=== PATIENT | male | born 1955 | race Caucasian/White ===

== ENCOUNTER 2022-06-02 11:24 | Emergency (ER) | payer MEDICARE, SELFPAY ==
--- NOTE | ~2022-06-02 | XR_ITS ---
Clinical Indication: Cough PA and lateral views of the chest: Comparison: None Findings: The lungs are clear, without evidence of focal consolidation or pleural effusion. Cardiome diastinal silhouette is within normal limits. Bones and soft tissues are unremarkable. Impression: Normal chest. Reviewed, dictated and finalized at location . [facility] Impression: Normal chest.
[2022-06-02 11:34] VITALS: BP 133/72; PULSE 76; RESP 14; TEMP 36.6; O2SAT 96
--- NOTE | 2022-06-02 11:51 | ED.URI ---
HPI - URI/Sore Throat General Chief Complaint: Upper Respiratory Infection Stated Complaint: Congestion/Chest Congestion Time Seen by Provider: 06/02/22 11:51 Source: patient Mode of arrival: ambulatory Limitations: no limitations History of Present Illness HPI Narrative: 66-year-old male presents with complaint of nasal congestion, sinus pressure, cough for 3 weeks. Reports that cough is worse in the morning. Reports postnasal drainage, started allergy medication and not helping. Denies shortness of breath with exertion. Afebrile. All systems reviewed and negative except as noted above. Related Data Home Medications Medication Instructions Recorded Confirmed Lactobac no.2-Bifidobac no.1-S. 1 cap PO DIRECTED 06/02/22 06/02/22 thermo 112.5 billion cell capsule (VSL#3) amlodipine 10 mg tablet 10 mg PO DIRECTED 06/02/22 06/02/22 apixaban 5 mg tablet (Eliquis) 5 mg PO DIRECTED 06/02/22 06/02/22 bupropion HCl 300 mg 24 hr tablet, 300 mg PO DIRECTED 06/02/22 06/02/22 extended release carvedilol 25 mg tablet 25 mg PO DIRECTED 06/02/22 06/02/22 dicyclomine 10 mg capsule 10 mg PO DIRECTED 06/02/22 06/02/22 ergocalciferol (vitamin D2) 1,250 50,000 unit PO DIRECTED 06/02/22 06/02/22 mcg (50,000 unit) capsule pravastatin 20 mg tablet 20 mg PO DIRECTED 06/02/22 06/02/22 sertraline 100 mg tablet 100 mg PO DIRECTED 06/02/22 06/02/22 sod picosulf 10 mg-magnes 3.5 ml PO DIRECTED 06/02/22 gram-citric 12 gram/160 mL oral solution (Clenpiq) trazodone 50 mg tablet 50 mg PO DIRECTED 06/02/22 06/02/22 valsartan 320 mg tablet 320 mg PO DIRECTED 06/02/22 06/02/22 Allergies Allergy/AdvReac Type Severity Reaction Status Date / Time tadalafil [From Cialis] Allergy Rash Verified 06/02/22 11:44 testosterone [From AndroGel] Allergy Rash Verified 06/02/22 11:46 Review of Systems Review of Systems: CONSTITUTIONAL: Denies fever, chills, or sweats. reports fatigue. EYES: Denies visual changes, redness, or discharge. ENT: Reports rhinorrhea, congestion. Denies sore throat, or otalgia. CARDIOVASCULAR: Denies chest pain, palpitations, or edema. RESPIRATORY: reports cough. Denies dyspnea. GASTROINTESTINAL: Denies abdominal pain, nausea, vomiting, or diarrhea. GENITOURINARY: Denies dysuria or hematuria. SKIN: Denies rash or itching. MUSCULOSKELETAL: Denies back pain, joint pain, or myalgia. NEUROLOGIC: Denies headache, numbness, or weakness. PSYCHIATRIC: Denies anxiety or depression. All other systems reviewed are negative, except as documented in HPI. PMFSH Comments At time of signature, agree with nursing past medical, surgical, social and family history. There is no relevant family history pertinent to the presenting complaint. Exam Narrative: GENERAL: This is a well-nourished, well-developed patient, in no apparent distress. HEAD: normocephalic, atraumatic. EYES: PERRL. Sclera clear/white. Vision is grossly intact. EARS: External ears normal, auditory canals clear and without drainage, TMs normal without perforation. Hearing grossly intact. NOSE: External nose normal with Clear nasal drainage, mild erythema to nares. Moderate congestion. Bilateral maxillary sinus tenderness. THROAT: Mucous membranes moist, posterior pharynx clear. Clear postnasal drainage. NECK: Neck supple, non-tender without lymphadenopathy, masses or thyromegaly. CARDIOVASCULAR: Regular rate and rhythm without murmurs, gallops, or rubs. RESPIRATORY: Rhonchi to right lung. Breath sounds equal bilaterally. No wheezes, rales, or rhonchi. GASTROINTESTINAL: Abdomen soft, non-tender, nondistended. Bowel sounds are active. No hepato-splenomegaly, or palpable masses. No guarding. SKIN: warm, Dry, intact with no suspicious lesions or rash, good texture and turgor. NEURO: awake, alert, and oriented to person, place and time. There were no obvious focal neurologic abnormalities. EXTREMITIES: No joint tenderness, effusion
== END 2022-06-02 12:19 | disposition home or self-care (01) ==
PROVIDERS: Emergency Provider Nurse Practitioner Family; PCP Family Medicine
DX: J01.90 Acute sinusitis, unspecified (principal); R05.9 Cough, unspecified; I10 Essential (primary) hypertension; F41.9 Anxiety disorder, unspecified; F32.A Depression, unspecified
CPT/HCPCS: 71046; 99213; G0463